=== PATIENT | male | born 1995 | race Two or more races ===

== ENCOUNTER 2017-07-28 15:41 | Emergency (ER) | payer OTHER ==
[~2017-07-28] VITALS: Ht 182.9 cm; Wt 113.5 kg
[2017-07-28 15:48] VITALS: BP 145/81
[2017-07-28] MEDS ORDERED: KEFLEX500 MG PO (16:18)
[2017-07-28] MEDS ORDERED: BACTRIM,SEPT1 TABLET PO (16:18)
[2017-07-28] MEDS ORDERED: BACTROBAN OINTM22 GM TP (16:18)
[2017-07-28] MEDS ORDERED: MOTRIN800 MG PO (16:18)
== END 2017-07-28 16:30 | disposition home or self-care (01) ==
LOC: EME 15:41
DX: L03.211 Cellulitis of face (principal); L02.01 Cutaneous abscess of face; F17.200 Nicotine dependence, unspecified, uncomplicated
CPT/HCPCS: 99281; 99284